=== PATIENT | male | born 1985 | race Caucasian/White ===

== ENCOUNTER 2017-08-23 15:47 | Outpatient (CLI) | payer OTHER ==
--- NOTE | 2017-08-23 16:42 | CT Preliminary Report ---
Exam: CT UPPER EXTREMITY LEFT W/O IMPRESSION: 1. Comminuted fracture the proximal articular surface of the first proximal phalanx involves the janice cular surface with about 4.6 mm of step-off. No portion of the articular surfaces in continuity with the diaphysis of the proximal phalanx. 2. Obliquely oriented fracture also extends to the midportion of the diaphysis as well. [facility] SITE ID: [id number]
--- NOTE | 2017-08-23 16:48 | CT Report ---
EXAM: LEFT ELBOW CT WITHOUT CONTRAST EXAM DATE: 08/23/2017 04:17 PM. CLINICAL HISTORY: Left thumb fracture. COMPARISON: None. TECHNIQUE: Thin-section axial images were acquired of the elbow without contrast. Post-processing: Co alan and sagittal reformats. Other: None. In accordance with CT protocol optimization, one or more of the following dose reduction techniques w ere utilized for this exam: automated exposure control, adjustment of mA and/or KV based on patient s ize, or use of iterative reconstructive technique. FINDINGS: Bones: Comminuted fracture of the proximal articular surface of the first proximal phalanx. No part o f the articular surface is in continuity with the diaphysis of the proximal phalanx. There also is an obliquely oriented fracture through the midportion of the diaphysis. Please see seri es 8 image 18, series 9 image 45. Joints: Comminution involves the first MCP joint, with multiple fragments. Central portion shows abou t 4.6 mm of step-off. Musculature: Normal. No fatty atrophy. Other: None. IMPRESSION: 1. Comminuted fracture of the proximal articular surface of the first proximal phalanx involves the a rticular surface with about 4.6 mm of step-off. No portion of the articular surfaces in continuity wi th the diaphysis of the proximal phalanx. 2. Obliquely oriented fracture also extends to the midportion of the diaphysis as well. [facility] Referring Provider Line: [phone] SITE ID: [id number]
== END 2017-08-23 15:48 | disposition home or self-care (01) ==
LOC: DI 15:47
PROVIDERS: ATTEND Orthopaedic Surgery
DX: S62.512A Displaced fracture of proximal phalanx of left thumb, initial encounter for closed fracture (principal)

== ENCOUNTER 2017-08-25 10:59 | Day surgery (SDC) | payer OTHER ==
[2017-08-25] MEDS ORDERED: ceFAZolin 2 GM/50 ML 2 GM/50 ML BAG IV ONE (11:13)
[2017-08-25] MEDS ORDERED: LACTATED RINGERS 1,000 ML IV ONE ×2 (11:30→16:33)
[2017-08-25] MEDS ORDERED: BUPIVACAINE 0.25% PF 30 ML VIAL SUBQ ONE ×2 (15:19)
[2017-08-25] MEDS ORDERED: PROPOFOL 200 MG/20 ML VIAL IVP ONE (16:30)
[2017-08-25] MEDS ORDERED: fentaNYL 100 MCG/2 ML VIAL IVP ONE (16:30)
[2017-08-25] MEDS ORDERED: fentaNYL 100 MCG/2 ML VIAL ONE (17:06)
[2017-08-25] MEDS ORDERED: KETOROLAC 15 MG/ML VIAL ONE (17:07)
[2017-08-25] MEDS ORDERED: oxyCODONE 5 MG TABLET ONE (17:47)
[2017-08-25 18:18] VITALS: BP 119/75
--- NOTE | 2017-08-26 09:00 | OPERATIVE REPORT ---
DATE OF SURGERY: 08/25/2017 00:00:00 PREOPERATIVE DIAGNOSIS: Left thumb fracture. POSTOPERATIVE DIAGNOSIS: Left thumb fracture. NAME OF PROCEDURE: Open reduction internal fixation of the left thumb with Giovanni frame. POSTOPERATIVE PLAN: Followup in 2 days for teaching about the frame. Pin care will be daily. He will be range of motion as tolerated. Pins will stay in place for 4-6 weeks. INDICATIONS FOR SURGERY: A 32-year-old male who sustained a comminuted base of P1 fracture of the left thumb on 08/18/2017 while playing flag football. Orthopedics was contacted on 08/23/2017. The patient was indicated for surgery secondary to the unstable nature of his fracture with angular deformity. R/B/A discussed. Risks include pain, bleeding, infection, damage to structures, arthritis, malunion, nonunion, pin tract infection, anesthetic risks. Consent was obtained. SURGICAL FINDINGS: Displaced fracture was reduced percutaneously and a dynamic external fixator was placed. IMPLANTS: A 0.045 K-wire x2. ANESTHESIA: General. ANTIBIOTICS: Weight-based Ancef. ESTIMATED BLOOD LOSS: 5 mL. URINE OUTPUT: Not recorded. IV FLUIDS: 500 mL. TOURNIQUET: None. SPECIMENS: None. COMPLICATIONS: None. DISPOSITION: Stable to PACU. DVT prophylaxis, early frequent ambulation. PROCEDURE IN DETAIL: The patient was met in the preoperative hold area on the day of the procedure, operative extremity was signed, consent was verified. He desired to proceed. He was brought to the operating room and was surrendered to anesthesia. Once general anesthesia had been obtained, he was placed in supine position. All bony prominences were well-padded. The left hand was prepped and draped in a standard sterile fashion. A surgical time-out was held to reconfirm the patient's identity, procedure, allergies, antibiotics and images all were in agreement, we proceeded. Fluoroscopy was brought in and the fracture was assessed. I then found the center of the first metacarpal head under fluoroscopic guidance and placed a 0.045 K-wire through the central axis of rotation in the coronal plane. Satisfied with this on imaging, I centered it and moved on to the next pin. I then placed an additional pin parallel to the first in the distal shaft of the proximal phalanx. I confirmed on fluoroscopy that it was parallel to the first. Satisfied with this positioning, I then bent them in the appropriate way for a Giovanni frame and placed 1 rubber band on each side. I noticed that the angular deformity had not been corrected and that the thumb was still angled to the radial side. I, therefore, placed a second rubber band on the radial side and I corrected this deformity. Satisfied with our distraction and deformity correction, I then proceeded to perform a percutaneous reduction. Under fluoroscopic guidance, the fracture line was identified and marked on the skin. A 1 cm incision was made in the mid lateral line on the radial aspect of the thumb at the location of the fracture. I then bluntly dissected down to the bone. [place] was then brought in through the major fracture line over the radial aspect and placed on the large impacted fragment, which was more volar and central. I then rotated my hand and disimpacted that central articular fragment until it was in line with the articular surface of the remainder of the joint. Satisfied with this, I then used the [place] to disimpact and reduce the major radial fragment as well. This improved the alignment. Final images were then taken and the small wound was closed with a single nylon suture. The hand was then cleansed, 10 mL of local was placed at the base of the thumb and the pin sites were dressed with Xeroform and a light outer dressing. The exposed K-wire had a cap placed on it. All K-wire sharp points were removed. The patient was awakened and transferred to recovery room without issue. JOB #: [id number] EXT JOB #:[id number] RICK
== END 2017-08-25 11:00 | disposition home or self-care (01) ==
LOC: SDS 10:59
PROVIDERS: ATTEND Orthopaedic Surgery
PROC: 0PS Upper Bones, Reposition (ICD-10-PCS; 2017-08-25)
PROC: 0PSS04Z Reposition Left Thumb Phalanx with Internal Fixation Device, Open Approach (ICD-10-PCS; principal; 2017-08-25 12:45)
DX: S62.512A Displaced fracture of proximal phalanx of left thumb, initial encounter for closed fracture (principal); Y93.62 Activity, american flag or touch football
CPT/HCPCS: 20690; 26735; A9270; J0690; J7120